=== PATIENT | female | born 1990 | race African-American/Black ===

== ENCOUNTER 2016-12-10 06:41 | Inpatient (IN) ==
[2016-12-10] MEDS ORDERED: MEPERIDINE 50 MG/1 ML VIAL IV PRN (07:55)
[2016-12-10] MEDS ORDERED: ONDANSETRON 4 MG/2 ML VIAL IV PRN ×2 (07:55→19:04)
[2016-12-10] MEDS ORDERED: BUTORPHANOL 2 MG/ML VIAL IV PRN (07:55)
[2016-12-10] MEDS ORDERED: hydrOXYzine HCL 25 MG/1 ML VIAL IM PRN (08:00)
[2016-12-10] MEDS ORDERED: OXYTOCIN/LR 20 UNIT/1,000 ML BAG IV SCH (08:00)
[2016-12-10] MEDS ORDERED: LACTATED RINGERS 1,000 ML IV SCH (08:00)
[2016-12-10] MEDS ORDERED: ePHEDrine 50 MG/ML AMP IV PRN (08:00)
[2016-12-10] MEDS ORDERED: diphenhydrAMINE 50 MG/1 ML VIAL IV PRN ×2 (08:00)
[2016-12-10] MEDS ORDERED: fentaNYL 2 MCG/ROPIV 0.2% EPID 150 ML EPIDURAL SCH (08:00)
[2016-12-10] MEDS ORDERED: PROMETHAZINE 25 MG/1 ML VIAL IM ONE (08:00)
[2016-12-10] MEDS ORDERED: ONDANSETRON 4 MG/2 ML VIAL IV ONE (08:00)
[2016-12-10] MEDS ORDERED: LACTATED RINGERS 1,000 ML IV ONE ×2 (08:00→19:04)
[2016-12-10 08:27] LABS: Basophils % 0.4 % (0.0-0.8); Eosinophils # 0.1 10*3/uL (0.0-0.87); Eosinophils % 1.2 % (0.00-10.9); Hematocrit 32.5 VOL% (35.7-47.0); Immature Granulocytes % 0.4 %; Immature Granulocytes Absolute 0.03 #; Lymphocytes # 2.8 10*3/uL (1.4-4.0); Lymphocytes % 37.2 % (21.3-54.2); Mean Corpuscular HGB Conc 33.8 GM/DL (32-36); Mean Corpuscular Hemoglobin 30 PG (27-34); Mean Corpuscular Volume 89.5 FL (87-102); Mean Platelet Volume 12.2 FL (9.6-12.0); Monocytes # 0.9 10*3/uL (0.11-0.8); Monocytes % 12.4 % (1.7-12.7); Neutrophils # 3.6 10*3/uL (1.4-7.4); Neutrophils % 48.4 % (38.7-73.9); Platelet Count 198 T/CUMM (130-400); Red Blood Count 3.63 MC/CUMM (3.8-5.5); Red Cell Distribution Width 12.5 % (9.3-17.3); White Blood Count 7.4 T/CUMM (4-12)
[2016-12-10 09:00] LABS: Alanine Aminotransferase 16 U/L (13-56); Albumin 2.7 G/DL (3.4-5.0); Alkaline Phosphatase 149 U/L (45-117); Aspartate Amino Transferase 20 U/L (0-37); Bilirubin,Total < 0.39 MG/DL (0.2-1.0); Blood Urea Nitrogen 6 MG/DL (7-18); Calcium 8.9 MG/DL (8.5-10.1); Glucose 68 MG/DL (74-106); Osmolality,Calculated 268.8 MOS/KG (273-304); Potassium 3.7 MMOL/L (3.5-5.1); Sodium 137 MMOL/L (136-145); Total Protein 6.7 G/DL (6.4-8.3); Uric Acid 4.3 MG/DL (2.6-6.0)
[2016-12-10] MEDS ORDERED: CITRIC ACID/SODIUM CITRATE 30 ML UDCUP PO ONE (09:00)
[2016-12-10] MEDS ORDERED: FAMOTIDINE 20 MG/2 ML VIAL IV ONE (09:00)
--- NOTE | 2016-12-10 09:20 | OB/GYN History & Physical ---
History of Present Illness Chief complaint: For elective induction of labor. History of present illness: Ms. Forbes is a 26 year old female 2 para 1 living 1. Her KARRIE is 2014 for an estimated gestational age of 39 weeks. The patient presents for elective induction of labor due to term . The risk and benefits have been thoroughly discussed with this patient and significant other, plan of care has been discussed with Dr. Miramontes and all parties are in agreement plan. The patient received her care at the [facility]. She started her care 15 weeks and she received routine care thereafter. Her course was uneventful. labs: She is O- and did receive RhoGam, rubella is immune, RPR is nonreactive, hepatitis B negative, HIV negative, and GBS culture negative. Review of systems is negative with the exception of above. The patient has had 1 previous vaginal delivery and that weighed 5 pounds and 6 ounces and she reported no complications with that . Home Medications Medication Instructions Recorded Confirmed Type Pnv No.95/Ferrous Fum/Folic AC 1 each PO DAILY 12/10/16 12/10/16 History [ Tablet] Allergies Allergy/AdvReac Type Severity Reaction Status Date / Time No Known Allergies Allergy Verified 12/10/16 07:53 12 point system: reviewed and no additional remarkable complaints except as stated Medical,Surgical,& Family Hx - Medical History Medical History: noncontributory Reproductive: History of: Sexually Transmitted Disorders (chlamydia 2014) No history of: Ectopic , Complication Other: No history of: Anesthesia Reactions - Surgical History Surgical History: noncontributory Thoracic Surgeries: Patient denies;: Organ Transplant Neurologic Surgeries: Patient denies: Neurologic Surgery Abdominal Surgeries: Patient denies: Abdominal Surgery Reproductive Surgeries: Patient denies;: Section - Family History Family History: Denies;: Family Anesthesia Reaction, Family Cancer, Family Diabetes, Family Heart Disease, Family Hypertension, Family Psychiatric Problems, Family Stroke, Additional Family History - Social History Smoking Status: Never smoker Frequency of Alcohol Use: None Type of Drug Use: Marijuana Marital Status: Single Lives With:: Significant Other Functional capacity: independent ambulation 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 - Constitutional Vitals: Vital Signs Temp Pulse Resp BP Pulse Ox 12/10/16 07:56 97.1 F L 79 20 107/72 98 General appearance: no acute distress - Antepartum / Post Antepartum Exam Cervix - Dilatation: 4 cm Effacement: 60% Station: -2 Rupture: Intact Presentation: Vertex Heart Rate: 130s-140s Breast: bilateral: normal Abdomen obstetrics: Present: bowel sounds normal Vagina: Present: normal moisture, discharge Uterus exam: Present: enlarged - Respiratory Respiratory exam: Present: clear to auscultation bilaterally - Cardiovascular Cardiovascular exam: Present: regular rate and rhythm - GI/Abdominal GI/Abdominal exam: Present: normal bowel sounds, soft - Extremities Exam Extremities exam: Present: normal inspection - Back Exam Back exam: Present: normal inspection - Neurological Exam Neurological exam: Present: alert, oriented X3 - Psychiatric Psychiatric exam: Present: normal affect, normal mood - Skin Skin exam: Present: normal color, warm Assessment and Plan (1) 39 weeks gestation of Status: Acute Assessment and plan: Admit IV fluids IV Pitocin per protocol Artificial rupture membranes Internal monitors if indicated Epidural anesthesia if desired Anticipate Current Visit: Yes Results - Labs CBC & BMP: 12/10/16 08:03 12/10/16 08:03
[2016-12-10 13:09] LABS: Apearance,Urine CLEAR (Clear); Bilirubin,Urine Negative (Negative); Blood, Urine Negative (Negative); Glucose,Urine (UA) Negative (Negative); Ketones,Urine Negative (Negative); Nitrite,Urine Negative (Negative); Protein,Urine Negative; RBC,Urine <1 /HPF (0-4); Squamous Epithelial Cell,Urine Occasional /HPF (0-10); Urine Color Colorless (Yellow); Urine Specific Gravity 1.003 (1.001-1.035); Urine Urobilinogen < 2.0 EU/DL (0.2-1.0)
[2016-12-10] MEDS ORDERED: ACETAMINOPHEN/CODEINE 300-30 MG TABLET PO PRN (16:01)
[2016-12-10] MEDS ORDERED: HYDROCORTISONE 2.5% RECTAL CREAM 30 GM TUBE TOP PRN ×2 (19:04→19:59)
[2016-12-10] MEDS ORDERED: OXYTOCIN/LR 20 UNIT/1,000 ML BAG IV ONE (19:04)
[2016-12-10] MEDS ORDERED: ACETAMINOPHEN 325 MG TABLET PO PRN ×2 (19:04→19:59)
[2016-12-10] MEDS ORDERED: BISACODYL 10 MG SUPP RECTAL PRN ×2 (19:04→19:59)
[2016-12-10] MEDS ORDERED: oxyCODONE/ACETAMINOPHEN 5-325 MG TABLET PO PRN ×4 (19:04→19:59)
[2016-12-10] MEDS ORDERED: BENZOCAINE 20%/MENTHOL 0.5% SPRAY 56 GM CAN TOP PRN ×2 (19:04→19:59)
[2016-12-10] MEDS ORDERED: WITCH HAZEL PADS 100/JAR TOP PRN ×2 (19:04→19:59)
[2016-12-10] MEDS ORDERED: LANOLIN 50% CREAM 0.3 OZ TUBE TOP PRN ×2 (19:04→19:59)
[2016-12-10] MEDS ORDERED: RHO(D) IMMUNE GLOBULIN 300 MCG SYRINGE IM ONE ×2 (19:04→19:59)
[2016-12-10] MEDS ORDERED: DIPH/TET/ACEL PERT BOOSTER VACCINE 0.5 ML VIAL IM ONE (19:59)
[2016-12-10] MEDS ORDERED: IBUPROFEN 800 MG TABLET PO PRN (19:59)
[2016-12-10] MEDS ORDERED: MEASLES/MUMPS/RUBELLA VACCINE 0.5 ML VIAL SUBCUT ONE (19:59)
[2016-12-10] MEDS: DOCUSATE SODIUM 100 MG CAPSULE PO SCH (20:57)
[2016-12-10] MEDS ORDERED: DOCUSATE SODIUM 100 MG CAPSULE PO SCH (21:00)
[2016-12-10] MEDS: IBUPROFEN 800 MG TABLET PO PRN (22:53)
[2016-12-11 05:43] LABS: Basophils % 0.3 % (0.0-0.8); Eosinophils # 0.1 10*3/uL (0.0-0.87); Eosinophils % 0.7 % (0.00-10.9); Hematocrit 33.4 VOL% (35.7-47.0); Hemoglobin 11.2 GM/DL (12.0-16.0); Immature Granulocytes % 0.4 %; Immature Granulocytes Absolute 0.06 #; Lymphocytes # 2.9 10*3/uL (1.4-4.0); Lymphocytes % 20.9 % (21.3-54.2); Mean Corpuscular HGB Conc 33.5 GM/DL (32-36); Mean Corpuscular Hemoglobin 30 PG (27-34); Mean Platelet Volume 11.2 FL (9.6-12.0); Monocytes # 1.3 10*3/uL (0.11-0.8); Monocytes % 9.4 % (1.7-12.7); Neutrophils # 9.5 10*3/uL (1.4-7.4); Neutrophils % 68.3 % (38.7-73.9); Platelet Count 195 T/CUMM (130-400); Red Blood Count 3.71 MC/CUMM (3.8-5.5); Red Cell Distribution Width 12.7 % (9.3-17.3)
[2016-12-11] MEDS ORDERED: RHO(D) IMMUNE GLOBULIN 300 MCG SYRINGE IM ONE (08:51)
[2016-12-11] MEDS: DOCUSATE SODIUM 100 MG CAPSULE PO SCH ×2 (09:05→21:04)
--- NOTE | 2016-12-11 09:35 | OB/GYN Progress Note ---
Assessment and Plan (1) 39 weeks gestation of Status: Acute Assessment and plan: Admit IV fluids IV Pitocin per protocol Artificial rupture membranes Internal monitors if indicated Epidural anesthesia if desired Anticipate Current Visit: Yes (2) Vaginal delivery Status: Acute Assessment and plan: Initiate routine orders. 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 Bonding well with . 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: Vital Signs Temp Pulse Resp BP Pulse Ox 12/11/16 07:17 97 F L 62 18 95/63 100 12/11/16 06:58 17 12/11/16 06:00 18 12/11/16 04:00 97.2 F L 68 17 100/69 97 12/11/16 03:00 17 12/11/16 00:00 97.2 F L 70 17 101/52 97 12/10/16 20:00 97.3 F L 62 18 120/68 97 12/10/16 19:03 97.6 F 64 18 139/92 12/10/16 16:00 97.1 F L 54 L 17 106/66 12/10/16 14:00 97.0 F L 12/10/16 11:59 97.7 F 69 20 107/75 99 General appearance: normal weight, no acute distress - Antepartum / Post Post Exam Breast: bilateral: normal Abdomen obstetrics: Present: bowel sounds normal Vagina: Present: normal moisture, discharge (Light lochia rubra) Uterus exam: Present: enlarged (Fundus firm and midline) Anus/Rectum: Present: normal perianal skin - Head Head exam: Present: normal inspection - Respiratory Respiratory exam: Present: clear to auscultation bilaterally - Cardiovascular Cardiovascular exam: Present: regular rate and rhythm - GI/Abdominal GI/Abdominal exam: Present: normal bowel sounds, soft - Extremities Exam Extremities exam: Present: normal inspection - Neurological Exam Neurological exam: Present: alert, oriented X3 - Psychiatric Psychiatric exam: Present: normal affect, normal mood - Skin Skin exam: Present: normal color, warm Results - Labs CBC & BMP: 12/11/16 05:34 12/10/16 08:03
--- NOTE | 2016-12-11 09:58 | Event Note ---
HPI: Ms. Forbes presented to the labor department for elective induction of labor due to term . The risk and benefits were thoroughly discussed with the patient significant other and plan of care was discussed with Dr. Miramontes. The patient was admitted for management of induction. Stage I: The patient was admitted she received IV fluids and IV Pitocin per protocol. Artificial rupture membranes was performed with clear fluid noted. An epidural anesthesia was obtained for pain control. The patient progressed in labor with a CAT 1 tracing. She had an uneventful course of labor. Stage II: The patient was complete complain of pressure and desire to push. She pushed for approximately 20-30 minutes after which time the infant's head was delivered. The mouth and nose suctioned on perineum, nuchal cord 1 was noted and reduced. The remainder the infant was delivered at 1505 a viable male infant was noted. Apgars were 9 at 1 minute and 9 at 5 minutes. weight was 6 lbs. 1 oz. A cord pH was obtained and sent to the lab. The infant was placed on the mom's abdomen for skin to skin bonding. Stage III: A spontaneous delivery of a Stevens placenta with three-vessel cord noted. The placenta was further examined appeared to be grossly intact. The vagina cervix inspected with no tears or lacerations noted. Estimated blood loss was approximately 100 cc. At the time of dictation mother and baby are both are in stable condition.
--- NOTE | 2016-12-11 12:44 | Anesthesia Post-Op ---
Anesthesia Post OP - Post Ansesthetic Evaluation Patient seen in post op: Yes Resp: within normal limits CV: within normal limits Mental: within normal limits Temp: within normal limits [id number]: within normal limits Nausea and Vomiting: within normal limits Pain: within normal limits
[2016-12-11] MEDS: IBUPROFEN 800 MG TABLET PO PRN (21:04)
[2016-12-12 07:45] VITALS: BP 120/75
[2016-12-12] MEDS: DOCUSATE SODIUM 100 MG CAPSULE PO SCH (08:28)
--- NOTE | 2016-12-12 10:09 | Discharge Summary ---
Hospital Course - Hospital Course Hospital Course: The patient presented to the labor department in for elective induction of labor due to term . She subsequently delivered a viable with no complications. She is followed a normal course and she has done well. She is bonding well with her . Her vital signs and lab values are stable. Her bleeding is minimal with no odor. Bowel sounds are positive and she has had a normal bowel movement. She denies any pain in her calves. Her perineum is intact with no edema. Fundus is firm and midline. Contraception options has been discussed with this patient she is unsure of method at this time. She will be discharged home prescriptions for pain and a follow-up appointment in our office. Diagnosis - Discharge Diagnosis (1) 39 weeks gestation of Status: Acute (2) Vaginal delivery Status: Acute Specialty Discharge - Follow Up or Referrals Follow up with: Tawnya Miramontes MD [Physician] - (Follow-up in 6 weeks.) Discharge Plan - Discharge Data Disposition: Disch To Home/Self Care Condition at Discharge: Stable Discharge Diet: advance to your usual diet, regular diet Activity: resume usual activities as tolerated Hygiene: no restrictions Weight Bearing at Discharge: full weight bearing Driving: no restrictions Contact your physician if you experience:: fever over 101, pain uncontrolled by pain medications - Discharge Medications New Ibuprofen Tab [Motrin Tab] 800 mg PO Q8H PRN #30 tablet PRN Reason: Pain Moderate (4-7) Acetamin/Codeine 300-30 Tab [Tylenol/Codeine #3] 2 tablet PO Q4H PRN #30 tablet PRN Reason: Pain Mild (1-3) No Action Pnv No.95/Ferrous Fum/Folic AC [ Tablet] 1 each PO DAILY - Follow Up or Referral - Forms/Instructions Instructions: Depression (GEN), Perineal Care (DC), Vaginal Delivery (DC), Bleeding (DC) Exam - Constitutional Vitals: Period Temp Pulse Resp BP Sys/Salcido Pulse Ox Last 24 Hr 97.1 F-99.0 F 57-95 18-18 102-122/56-79 98-99 General appearance: no acute distress - Head Head exam: Present: normal inspection - Respiratory Respiratory exam: Present: clear to auscultation bilaterally - Cardiovascular Cardiovascular exam: Present: regular rate and rhythm - GI/Abdominal GI/Abdominal exam: Present: normal bowel sounds - Extremities Exam Extremities exam: Present: normal inspection - Neurological Exam Neurological exam: Present: alert, oriented X3 - Psychiatric Psychiatric exam: Present: normal affect, normal mood - Skin Skin exam: Present: normal color, warm DS: Provider Date of admission: 12/10/16 07:55 Primary care physician: . No PCP Attending physician on admission: Tawnya Miramontes MD Consults: 12/10/16 07:55 Consult to Anesthesiology [CONS] Routine Consulting Provider: Reason for Anesthesiology: Epidural Consult Comment: Epidural for pain managment 12/10/16 19:05 Consult to Color Drum Worker [CONS] Routine Consult Color Drum Worker: Breast Feeding 12/10/16 19:59 Consult to Color Drum Worker [CONS] Routine Consult Color Drum Worker: Breast Feeding Discharging clinician: Kathia Hernandez CNM Expected date of discharge: 12/12/16
== END 2016-12-12 13:10 | disposition home or self-care (01) | DRG 775 ==
LOC: EDSTATUS 06:41 → N.LDOUT 06:41 → N.LD 06:42 → N.OB 19:57
PROVIDERS: ADMIT Obstetrics & Gynecology; ATTEND Obstetrics & Gynecology